=== PATIENT | female | born 1945 | race Caucasian/White ===

== ENCOUNTER 2023-09-01 13:34 | Outpatient (CLI) | payer MEDICARE, SELFPAY | END 2023-09-01 23:59 | LOC: RT 13:37 | PROVIDERS: PCP Family Medicine; Visit Provider Physician Assistant | DX: I10 Essential (primary) hypertension (principal); E78.2 Mixed hyperlipidemia; G47.33 Obstructive sleep apnea (adult) (pediatric); Z92.89 Personal history of other medical treatment; Z86.79 Personal history of other diseases of the circulatory system; R00.1 Bradycardia, unspecified; R42 Dizziness and giddiness | CPT/HCPCS: 93270 ==